=== PATIENT | male | born 1975 | race Hispanic/Latino ===

== ENCOUNTER → 2019-11-05 | Outpatient (CLI) | payer OTHER ==
[~2019-11-05] MED LIST: DURAMORPH PF1 MG/ML 10ML AMP IV ONE; FENTANYL CITRATE PF 50 MCG/1 ML 2ML VIAL ONE
== END | disposition home or self-care (01) ==
LOC: SHCH 15:47
PROVIDERS: ATTEND Internal Medicine Cardiovascular Disease
DX: R07.9 Chest pain, unspecified (principal)
CPT/HCPCS: 93306; J2274; J3010